=== PATIENT | male | born 1980 | race Caucasian/White ===

== ENCOUNTER → 2020-01-12 09:04 | Outpatient (CLI) | payer BC, SELFPAY ==
--- NOTE | 2020-01-12 09:12 | CT_ITS ---
STUDY: CT MAXILLOFACIAL SINUSES REASON FOR EXAM: Male, 39 years old. SINUSITIS RADIATION DOSAGE (If Supplied By Facility): CTDIvol = ( 33.06 ) mGy, DLP = ( 850.38 ) mGycm TECHNIQUE: The patient was scanned in a multi detector CT scanner. High resolution axial imaging was performed without the administration of intravenous contrast material. Sagittal and coronal images were reconstructed. Individualized dose optimization techniques were used for this CT. COMPARISON: None. FINDINGS: FRONTAL SINUSES: Minimal mucosal thickening in the left frontal sinus. Normal right frontal sinus. ETHMOIDAL SINUSES: Minimal mucosal thickening in the ethmoid sinuses. MAXILLARY SINUSES: Large mucous retention cyst in the right maxillary sinus and mild mucosal thickening. Moderate mucosal thickening in the floor of the left maxillary sinus. SPHENOIDAL SINUSES: Moderate mucosal thickening in the left sphenoid sinus and mild mucosal thickening in the right sphenoid sinus. Narrow but patent bilateral ostiomeatal units. Normal bilateral middle turbinates. Normal bilateral inferior turbinates. Mild right nasal septal deviation. There is patency of the bilateral nasal airways. The visualized osseous structures are normal. The visualized bilateral orbital contents are normal. CT/Sinus/Facial Bone IMPRESSION: 1. Bilaterally patent ostiomeatal units. 2. Moderate mucosal thickening in the floor of the left maxillary sinus, mild mucosal thickening in the right maxillary sinus, prominent mucous retention cyst in the floor of the right maxillary sinus, moderate mucosal thickening in the left sphenoid sinus, mild mucosal thickening of the right sphenoid sinus, minimal mucosal thickening in the left frontal sinus and both ethmoid sinuses. 3. Mild right nasal septal deviation. Electronically Signed: Reji Saunders MD at 11:10 EST , Service support ,
== END ==
PROVIDERS: Referring Provider Otolaryngology; Visit Provider Otolaryngology
DX: J32.9 Chronic sinusitis, unspecified (principal)
CPT/HCPCS: 70486

== ENCOUNTER → 2024-06-08 | Outpatient (CLI) | payer BC, SELFPAY | END | disposition home or self-care (01) | LOC: SL 19:48 | PROVIDERS: Referring Provider Family Medicine; Visit Provider Family Medicine | DX: G47.33 Obstructive sleep apnea (adult) (pediatric) (principal) | CPT/HCPCS: 95810 ==